=== PATIENT | female | born 1955 | race Two or more races ===

== ENCOUNTER → 2019-10-08 | Outpatient (CLI) | payer MEDICARE ==
[2019-10-08 16:41] LABS: BASO % 0 % (0-3); EOS # 0.1 x10^3/uL (0.0-0.7); EOS % 2 % (0-3); HEMATOCRIT 40.3 % (36.0-47.0); HEMOGLOBIN 13.7 g/dL (12.0-15.5); LYMPH # 1.9 x10^3/uL (1.0-4.8); LYMPH % 32 % (24-48); MEAN CORPUSCULAR HEMOGLOBIN 29 pg (25-35); MEAN CORPUSCULAR HGB CONC 34 g/dL (31-37); MEAN CORPUSCULAR VOLUME 86 fL (79-100); MONO # 0.5 x10^3/uL (0.0-1.1); MONO % 8 % (0-9); NEUT # 3.5 x10^3/uL (1.8-7.7); NEUT % 58 % (31-73); PLATELET COUNT 183 x10^3/uL (140-400); RED CELL DISTRIBUTION WIDTH 13.5 % (11.5-14.5)
[2019-10-08 17:04] LABS: ALBUMIN 3.7 g/dL (3.4-5.0); ALBUMIN/GLOBULIN RATIO 0.9 (1.0-1.7); CREATININE 0.8 mg/dL (0.6-1.0); GFR 71.8; POTASSIUM 3.4 mmol/L (3.5-5.1); TOTAL BILIRUBIN 0.3 mg/dL (0.2-1.0); TOTAL PROTEIN 7.6 g/dL (6.4-8.2)
== END | disposition home or self-care (01) ==
LOC: LAB 16:20
PROVIDERS: ATTEND Psychiatry & Neurology Neurology
DX: G24.5 Blepharospasm (principal); G51.4 Facial myokymia
CPT/HCPCS: 36415; 80053; 82607; 84443; 85025

== ENCOUNTER → 2019-10-30 | Outpatient (CLI) | payer MEDICARE ==
--- NOTE | 2019-10-30 13:12 | EEG ---
DATE OF SERVICE: 10/30/2019 EEG NUMBER: [id number]. OBJECTIVE: This is a 64-year-old female patient with history of abnormal facial movements. EEG was requested to help rule out focal seizure. METHODS: Twenty electrodes were applied according to the international 10-20 electrode placement system. EKG monitoring, hyperventilation, intermittent photic stimulation, monopolar and bipolar montages are routinely utilized. The record was obtained on a digital system with video monitoring. FINDINGS: 1. Background: The patient was recorded in the awake and drowsy states. No actual sleep state was recorded. The overall background amplitude is 5-15 microvolts. A posterior dominant rhythm of 8 Hz is observed. 2. Abnormalities: No specific epileptiform discharge or electrographic seizure is seen. No focal or diffuse slowing. Significant muscle artifact noted. 3. Activation: Hyperventilation was performed with fair efforts and normal response. Intermittent photic stimulation was performed with photic driving. No specific epileptiform discharge or electrographic seizure induced. IMPRESSION: This EEG is a normal study for the awake and drowsy states. No actual sleep state was recorded. No focal, lateralizing, specific epileptiform discharge or electrographic seizure is seen. Muscle artifact noted. GLORIA ZARAGOZA MD DR: MARGRET/chris JOB#: [id number] / [id number] ESPERANZA
== END | disposition home or self-care (01) ==
LOC: RT 09:03
PROVIDERS: ATTEND Psychiatry & Neurology Neurology
DX: G24.5 Blepharospasm (principal); G51.4 Facial myokymia
CPT/HCPCS: 95816

== ENCOUNTER → 2019-11-04 | Outpatient (CLI) | payer MEDICARE ==
[~2019-11-04] MED LIST: GADOTERATE 7.5 MMOL/15ML VIAL. IVP ONE
--- NOTE | 2019-11-04 16:09 | RAD ---
BRAIN WO/W CONTRAST History: Abnormal facial twitching. Technique: Multiplanar, multi sequential pre and postcontrast MR imaging was performed of the brain. Comparison: None Findings: No acute infarct. No intracranial hemorrhage. No mass effect. No hydrocephalus. No pathologic enhancement. Chronic right caudate lacunar infarct. Ex vacuo dilatation of the right lateral ventricle. Chronic right basal ganglia prior infarct or hemorrhage. Mild foci of T2/FLAIR hyperintensities within the hemispheric white matter, most often due to chronic microvascular ischemia. Partially empty sella, likely within normal range for age although can be seen with intracranial hypertension or panhypopituitarism. Imaged orbits are unremarkable. Minimal right inferior maxillary sinus mucosal thickening. Mastoid air cells are clear. Impression: 1. No acute intracranial abnormality. 2. Chronic right basal ganglia infarcts. 3. Partially empty sella, as described. Electronically signed by: Franko Che DO (11/04/2019 4:06 PM) [id number]
== END | disposition home or self-care (01) ==
LOC: MRI 10:13
PROVIDERS: ATTEND Psychiatry & Neurology Neurology
DX: I63.89 Other cerebral infarction (principal)
CPT/HCPCS: 70553; A9575